=== PATIENT | female | born 1945 | race Caucasian/White ===

== ENCOUNTER 2016-05-26 08:50 | Outpatient (CLI) | payer BC ==
[2016-05-26] MEDS ORDERED: BARIUM SULFATE 135 ML SUSP.RECON (E-Z-HD) PO ONE (09:20)
== END 2016-05-26 18:22 | disposition home or self-care (01) ==
LOC: SRD 08:50
DX: R47.02 Dysphasia (principal); R13.10 Dysphagia, unspecified
CPT/HCPCS: 74241